=== PATIENT | male | born 1970 | race Caucasian/White ===

== ENCOUNTER 2022-10-15 14:14 | Inpatient (IN) | payer OTHER ==
[~2022-10-15] VITALS: Ht 177.8 cm; Wt 89.8 kg
--- NOTE | 2022-10-15 14:16 | NUR ---
pt taken to room 01 by hui
[2022-10-15] MEDS ORDERED: cefTRIAXone 1,000 MG in DEXT 5% MINI-BAG PLUS 50 ML IV ONE (14:20)
[2022-10-15 14:25] VITALS: BP 120/72
[2022-10-15] MEDS ORDERED: cefTRIAXone 1,000 MG VIAL ONE (14:49)
[2022-10-15 14:59] LABS: BASOPHILS # (AUTO) 0.1 K/uL (0.00-0.22); BASOPHILS % (AUTO) 0.9 % (0.0-2.0); EOSINOPHILS # (AUTO) 0.2 K/uL (0-0.4); EOSINOPHILS % (AUTO) 1.6 % (0.0-4.0); HEMATOCRIT 21.9 % (36-52); LYMPHOCYTES # (AUTO) 0.8 K/uL (2.0-11.5); LYMPHOCYTES % (AUTO) 5.8 % (20.5-51.1); MEAN CORPUSCULAR HEMOGLOBIN 30 pg (27-31); MEAN CORPUSCULAR HGB CONC 32 g/dL (33-37); MEAN CORPUSCULAR VOLUME 92.3 fL (80-94); MONOCYTES # (AUTO) 0.9 K/uL (0.8-1.0); MONOCYTES % (AUTO) 6.5 % (1.7-9.3); NEUTROPHILS # (AUTO) 11.4 K/uL (1.8-7.7); NEUTROPHILS % (AUTO) 85.2 % (42.2-75.2); PLATELET COUNT (AUTO) 348 K/uL (140-450); RED BLOOD CELL COUNT(AUTO) 2.37 MIL/uL (4.20-6.10); RED CELL DISTRIBUTION WIDTH 14.5 % (11.6-13.7); WHITE BLOOD COUNT (AUTO) 13.4 K/uL (4.8-10.8)
[2022-10-15 15:25] LABS: ALBUMIN 1.7 g/dL (3.4-5.0); CARBON DIOXIDE 11.1 mmol/L (21-32); POTASSIUM 5.1 mmol/L (3.5-5.1); TOTAL BILIRUBIN 0.1 mg/dL (0.0-1.0)
--- NOTE | 2022-10-15 15:26 | NUR ---
Covid, flu, urine dropped off at lab.
[2022-10-15 15:33] LABS: CREATININE 12.3 mg/dL (0.6-1.3)
[2022-10-15 15:35] LABS: BILIRUBIN,URINE NEGATIVE (NEGATIVE); BLOOD, URINE 1+ (NEGATIVE); COLOR,URINE YELLOW (YELLOW); LEUKOCYTE ESTERASE ,URINE NEGATIVE (NEGATIVE); NITRITE, URINE NEGATIVE (NEGATIVE); UGLUCOSE 1+ (NEGATIVE)
[2022-10-15] MEDS ORDERED: NACL 0.9% 500 ML IV ONE (15:40)
[2022-10-15 15:44] LABS: APPEARANCE,URINE CLEAR (CLEAR)
[2022-10-15 15:55] LABS: RBC,URINE 0-5 /HPF (0-5); WBC,URINE 0-5 /HPF (0-5)
[2022-10-15 15:56] LABS: URINE AMORPHOUS URATE 3+ /HPF (None Seen)
[2022-10-15] MEDS ORDERED: ALBUTEROL 0.083% 2.5 MG/3 ML NEBU INH PRN (17:30)
[2022-10-15] MEDS ORDERED: ONDANSETRON 4 MG/2 ML VIAL IVP PRN (17:35)
[2022-10-15] MEDS ORDERED: MORPHINE SULFATE 2 MG/ML SYR IVP PRN (17:35)
[2022-10-15] MEDS ORDERED: ZOLPIDEM 10 MG TAB PO PRN (17:35)
[2022-10-15] MEDS ORDERED: LORazepam 2 MG/ML VIAL IVP PRN (17:35)
[2022-10-15] MEDS ORDERED: MAG SULF 2000 MG/WATER PREMIX 50 ML IV PRN (17:35)
[2022-10-15] MEDS ORDERED: DOCUSATE SODIUM 100 MG GELCAP PO PRN (17:35)
--- NOTE | 2022-10-15 20:03 | NUR ---
PT IS RESTING. LOOK TIRED. LIZZY BATRES 2 L IS ON SATINNG AT 98
[2022-10-15] MEDS ORDERED: APR10 PO (20:47)
[2022-10-15] MEDS ORDERED: GLUC1VIA SUBQ (20:47)
[2022-10-15] MEDS ORDERED: VANC125C5 PO (20:47)
[2022-10-15] MEDS ORDERED: ESCI10TA PO (20:47)
[2022-10-15] MEDS ORDERED: ACET-2619 PO (20:47)
[2022-10-15] MEDS ORDERED: SLIDE SUBQ (20:47)
[2022-10-15] MEDS ORDERED: CARV25TA PO (20:47)
[2022-10-15] MEDS ORDERED: ASPI-1749 PO (20:47)
[2022-10-15] MEDS ORDERED: DIPH25TA41 PO (20:47)
[2022-10-15] MEDS ORDERED: HEPA500056 SUBQ (20:47)
[2022-10-15] MEDS ORDERED: [UNRECOGNIZED DRUG - CODE] IV (20:47)
[2022-10-15] MEDS ORDERED: ONDA-188 PO (20:47)
[2022-10-15] MEDS ORDERED: NALO4SPR IVP (20:47)
[2022-10-15] MEDS ORDERED: TAMS0.4C96 PO (20:47)
[2022-10-15] MEDS ORDERED: DIPH50TA5 PO (20:47)
[2022-10-15] MEDS ORDERED: MORP1SYR3 IV (20:47)
[2022-10-15] MEDS ORDERED: FERR325E14 PO (20:47)
[2022-10-15] MEDS ORDERED: PANT20EC PO (20:47)
[2022-10-15] MEDS ORDERED: LAS20I IV (20:47)
[2022-10-15] MEDS ORDERED: PIPE50SO5 IV (20:47)
--- NOTE | 2022-10-15 21:04 | NUR ---
Patient will be admitted to care of DR. CABALLERO . Admited to TELEMETRY . Will go to room 107B. Belongings list completed. Report to GRIFFIN.
--- NOTE | 2022-10-15 21:25 | NUR ---
RECEIVED PT. FROM ER AND REPORT GIVEN BY JENNA PEPPER. PT. SLEEPY AND SNORING UPON TRANSFERRED FROM [facility] TO TELEMETRY BED. EYES PERRLA. BILATERAL LUNGS DIMINISHED SOUNDS. ON NASAL CANULA 2L WITH O2 SAT 99%. ABDOMEN MINIMAL BOWEL SOUNDS, SOFT AND NON TENDER. IV TO RIGHT HAND 18G CAPPED AND FLUSHED. PT. WITH GENERALIZED WEAKNESS. INCONTINENT. SKIN INTACT. DIET IS 2 GM NA. BEDLOCK AND PLACED IN THE LOWEST HEIGHT FOR SAFETY. FREQUENT BEDSIDE CHECK. PROVIDED QUIET ENVIRONMENT. NO S/S OF RESPIRATORY DISTRESS AND NO S/S OF PAIN.
[2022-10-15 21:30] VITALS: BP 126/68
[2022-10-15] MEDS: PIPERACILLIN/TAZOBACTAM 2.25 GM in DEXTROSE 5% 50 ML IV SCH (22:00)
[2022-10-15] MEDS ORDERED: PIPERACILLIN/TAZOBACTAM 2.25 GM VIAL IV ONE (23:17)
[2022-10-16] VITALS: BP 114/62
[2022-10-16 04:00] VITALS: BP 123/61
[2022-10-16] MEDS ORDERED: PIPERACILLIN/TAZOBACTAM 2.25 GM VIAL IV ONE (05:42)
[2022-10-16] MEDS: PIPERACILLIN/TAZOBACTAM 2.25 GM in DEXTROSE 5% 50 ML IV SCH ×3 (05:45→20:17)
--- NOTE | 2022-10-16 06:50 | NUR ---
DR. MELCHOR CALLED AND ASKED PT. CURRENT CONDITION. PROVIDED DR. MELCHOR WITH PT. NEURO STATUS AT THIS TIME. HE ORDERED TO CONSULT DR. NAVARRETE FOR HD CATHETER PLACEMENT THEN HEMODIALYSIS AFTER PLACEMENT. WILL ENDORSE TO THE NEXT SHIFT.
[2022-10-16 07:23] LABS: BASOPHILS # (AUTO) 0.1 K/uL (0.00-0.22); BASOPHILS % (AUTO) 0.5 % (0.0-2.0); EOSINOPHILS # (AUTO) 0.1 K/uL (0-0.4); EOSINOPHILS % (AUTO) 1.2 % (0.0-4.0); HEMATOCRIT 25.3 % (36-52); HEMOGLOBIN 8.1 g/dL (12.0-18.0); LYMPHOCYTES # (AUTO) 0.8 K/uL (2.0-11.5); MEAN CORPUSCULAR HEMOGLOBIN 30 pg (27-31); MEAN CORPUSCULAR HGB CONC 32 g/dL (33-37); MEAN CORPUSCULAR VOLUME 93.1 fL (80-94); MONOCYTES # (AUTO) 0.5 K/uL (0.8-1.0); MONOCYTES % (AUTO) 4.2 % (1.7-9.3); NEUTROPHILS # (AUTO) 11.1 K/uL (1.8-7.7); NEUTROPHILS % (AUTO) 88.1 % (42.2-75.2); PLATELET COUNT (AUTO) 398 K/uL (140-450); RED BLOOD CELL COUNT(AUTO) 2.72 MIL/uL (4.20-6.10); RED CELL DISTRIBUTION WIDTH 14.2 % (11.6-13.7); WHITE BLOOD COUNT (AUTO) 12.6 K/uL (4.8-10.8)
--- NOTE | 2022-10-16 07:30 | NUR ---
RECEIVED BEDSIDE REPORT FROM [facility] NURSE FOR CONTINUITY OF CARE. IVF INFUSING WELL. CALL LIGHT KEPT WIHTIN REACH. WILL CONTINUE TO MONITOR.
[2022-10-16 07:37] LABS: ANION GAP 28.8 (8-16); POTASSIUM 5.2 mmol/L (3.5-5.1)
[2022-10-16 08:00] VITALS: BP 130/68
[2022-10-16 08:06] LABS: CREATININE 12.8 mg/dL (0.6-1.3)
[2022-10-16 08:07] LABS: CARBON DIOXIDE 9.4 mmol/L (21-32)
--- NOTE | 2022-10-16 08:16 | NUR ---
RECEIVED CALLED FROM LAB SPOKE TO [facility], CRITICAL BUN 113, CREATINE 12.8, CARBON DIOXIDE 9.4. DR. CABALLERO AT BEDSIDE, NOTIFIED WITH NO NEW ORDER. PATIENT IS FOR HD CATHETER PLACEMENT.
[2022-10-16] MEDS: ASPIRIN 81 MG TAB.CHEW PO SCH (09:00)
--- NOTE | 2022-10-16 09:21 | NUR ---
PATIENT HAS BEEN SCREENED AND CATEGORIZED MODERATE NUTRITION RISK. PATIENT WILL BE SEEN WITHIN 3-5 DAYS OF ADMISSION. REVIEWED BY KEON SOOD RD
--- NOTE | 2022-10-16 09:40 | NUR ---
HD DIALYSIS CATHETER PLACEMENT DONE BY DR. NAVARRETE AT THE BEDSIDE. PT TOLERATED WELL. Addendum: 10/16/22 at 1935 by ANNA SINCLAIR LVN RT IJ HEMODIALYSIS CATHETER.
[2022-10-16] MEDS ORDERED: LIDOCAINE 1% 500 MG/ 50 ML VIAL INJ SCH (09:45)
--- NOTE | 2022-10-16 10:10 | NUR ---
HD DIALYSIS STARTED.
[2022-10-16 12:00] VITALS: BP 123/62
--- NOTE | 2022-10-16 14:35 | NUR ---
HEMODIALYSIS DONE. PER DIALYSIS NURSE WITH 2 L DIALYZE.
[2022-10-16 16:00] VITALS: BP 126/75
--- NOTE | 2022-10-16 19:25 | NUR ---
BEDSIDE REPORT GIVEN FOR CONTINUITY OF CARE. REMAINS STABLE.
--- NOTE | 2022-10-16 19:30 | NUR ---
RECEIVED PT IN BED, ASLEEP, EASILY AROUSABLE BY VERBAL STIMULI. NO S/SX OF PAIN NOR DISCOMFORT. NO ACUTE RESPIRATORY DISTRESS. SKIN WARM AND DRY TO TOUCH. RIGHT IJ DIALYSIS ACCESS IN PLACE WITH CDI DRESSING. SAFETY PRECAUTION IN PLACE, CALL LIGHT IN REACH.
[2022-10-16 20:00] VITALS: BP 150/79
[2022-10-16] MEDS: ACETAMINOPHEN 325 MG TAB PO PRN (21:28)
--- NOTE | 2022-10-16 22:05 | NUR ---
INCONTINENT OF URINE, PERINEAL CARE RENDERED. PULLED UP AND REPOSITIONED PT. HEAD OF THE BED ELEVATED. CALL LIGHT IN REACH.
[2022-10-17] VITALS: BP 116/57
--- NOTE | 2022-10-17 00:13 | NUR ---
PATIENT IS ASLEEP. BREATHING EVEN AND UNLABORED. CALL LIGHT IN REACH. CALL LIGHT WITHIN REACH.
[2022-10-17 04:00] VITALS: BP 148/73
--- NOTE | 2022-10-17 04:15 | NUR ---
PATIENT HAD A BOWEL MOVEMENT, AM CARE RENDERED. MADE COMFORTABLE IN BED.
[2022-10-17] MEDS: PIPERACILLIN/TAZOBACTAM 2.25 GM in DEXTROSE 5% 50 ML IV SCH ×2 (04:49→12:02)
--- NOTE | 2022-10-17 06:22 | NUR ---
PATIENT IS ASLEEP. NO DISTRESS NOTED. ALL NEEDS ATTENDED TO. SAFETY PRECAUTIONS MAINTAINED DURING THE SHIFT, CALL LIGHT REMAINS WITHIN REACH.
[2022-10-17 07:21] LABS: CARBON DIOXIDE 17.8 mmol/L (21-32); POTASSIUM 3.8 mmol/L (3.5-5.1)
--- NOTE | 2022-10-17 07:32 | NUR ---
GOT REPORT FROM THE NIGHT NURSE, PT SLEEPING, NO SOB [id number]
[2022-10-17 07:50] LABS: HEMATOCRIT 21.3 % (36-52); HEMOGLOBIN 7.1 g/dL (12.0-18.0); MEAN CORPUSCULAR HEMOGLOBIN 31 pg (27-31); MEAN CORPUSCULAR HGB CONC 33 g/dL (33-37); MEAN CORPUSCULAR VOLUME 91.3 fL (80-94); PLATELET COUNT (AUTO) 361 K/uL (140-450); RED BLOOD CELL COUNT(AUTO) 2.33 MIL/uL (4.20-6.10); RED CELL DISTRIBUTION WIDTH 13.9 % (11.6-13.7); WHITE BLOOD COUNT (AUTO) 9.1 K/uL (4.8-10.8)
[2022-10-17 08:00] VITALS: BP 150/81
[2022-10-17 08:01] LABS: CREATININE 9.3 mg/dL (0.6-1.3)
[2022-10-17] MEDS: ASPIRIN 81 MG TAB.CHEW PO SCH (08:31)
[2022-10-17 12:00] VITALS: BP 158/81
--- NOTE | 2022-10-17 14:09 | NUR ---
DC PLANNING: PER DR MCELROY AGRICULTURAL SERVICES DIRECTOR ORDER TO ARRANGED OUT PT DIALYSIS WITH [facility] FAXED THE PAPERWORK TO [facility] [phone] AND PER GRAPHIC PRE PRESS TRADES WORKER CHAIR TIME WILL BE M-W- F AT 1PM. CM TO FOLLOW Addendum: 10/22/22 at 1352 by Shantelle Kwan CM ORDER FOR DC PLANNING TO [facility] RECEIVED. CONTACTED PATIENT'S BROTHER BRITTANY RANDHAWA AT [phone]. NO ANSWER. LEFT MESSAGE REQUESTING A CALL BACK. WILL FOLLOW UP. ORDER SENT TO [facility]. REFERRAL SENT TO [facility]. RECEIVED A CALL BACK FROM [facility] WAS WITH [facility] WHEN PATIENT WAS WITH THEM. Addendum: 10/25/22 at 1507 by Shania Urena RN DC PLANNING: [facility] ACCEPTED PATIENT CAN GO TO ROOM 206B # TO GIVE REPORT [phone] . CM SPOKE WITH PATIENT AND HE AGREED TO GO TO [facility]. ARRANGED TRANSPORT WITH [facility] UPTIME 3:30 PM. NOTIFIED [facility] TRANSPORTATION PLANNER. CM TO FOLLOW
[2022-10-17 14:15] LABS: EOSINOPHILS % (MANUAL) 1 % (0-4); LYMPHOCYTES % (MANUAL) 7 % (20-46); MONOCYTES % (MANUAL) 6 % (5-12)
--- NOTE | 2022-10-17 14:16 | NUR ---
DC PLANNING PER NOTES PT ONLY ALERT TO PERSON, THEREFORE SW OUTREACHED TO [facility]CI TO GATHER COLLATERAL INFORMATION. SPOKE WITH SILVESTRE WHO REPORTS PT IS RECENT ADMIT TO , ADMIT DATE 10/14/22. SILVESTRE REPORTS PT WAS ADMITTED TO UNDER HOSPICE CARE WITH [facility], HOWEVER REVOKED HOSPICE ON 10/15 FAMILY DECIDED TO PROCEED WITH DIALYSIS. SILVESTRE REPORTS PT AND FAMILY WANTED TO RETURN HOME BEFORE BEING ADMITTED TO [facility]. SW OUTREACHED TO PTS EMERGENCY CONTACT, LOAN RANDHAWA, FQ CONFIRM COLLATERAL INFORMATION GATHERED. SPOKE WITH LOAN WHO CONFIRMS DC PLAN IS FOR PT TO RETURN HOME, ONCE STABLE. LOAN REPORTS PT WILL RETURN TO [address] [place] [address] AND WILL BE RESIDING WITH HIM. Addendum: 10/17/22 at 1418 by Luis Manuel JOHNSON Amended: Links added.
--- NOTE | 2022-10-17 16:09 | NUR ---
PT IS GETTING READY TO BE DIALYZED, CONSENT [facility] FOR DIALYSIS AND FOR HEMODIALYSIS CATH FOR TOMORROW THE [facility] IS UP FOR NPO AFTER MIDNIGHT. [id number]
[2022-10-17 16:23] VITALS: BP 165/83
--- NOTE | 2022-10-17 16:30 | NUR ---
10/17/22 RD INITIAL ASSESSMENT COMPLETED PLEASE REFER TO NUTRITION ASSESSMENT UNDER CARE ACTIVITY FOR ESTIMATED NUTRITIONAL NEEDS. 1. RECOMMEND RENAL DIET 2. RECOMMEND NEPRO 1XDAY, FOR NUTRITION SUPPORT. 3. CLOAK ROOM ATTENDANT EDUCATED PT ON RENAL NUTRITION THERAPY, AND PROVIDED HANDOUTS. 4. MONITOR PO INTAKE, GI, AND LAB VALUES. 5. RD TO FOLLOW-UP 7 DAYS, LOW RISK REVIEWED BY KEON SOOD RD
--- NOTE | 2022-10-17 18:37 | NUR ---
PT IN DIALYSIS . [email or web address]
--- NOTE | 2022-10-17 19:10 | NUR ---
RECEIVED PT IN BED WITH EYES CLOSED, HD DONE-2.5 L OUT PER DELIVERY MOTORCYCLE DRIVER. NO S/SX OF PAIN NOR DISCOMFORT. NO ACUTE RESPIRATORY DISTRESS NOTED. SKIN WARM AND DRY TO TOUCH. BED IN THE LOWEST AND LOCKED POSITION FOR SAFETY, CALL LIGHT IN REACH.
[2022-10-17 20:00] VITALS: BP 183/92
[2022-10-17] MEDS: CLONIDINE HYDROCHLORIDE 0.1 MG TAB PO PRN (20:23)
--- NOTE | 2022-10-17 22:35 | NUR ---
SPOKE WITH DR. ALVARENGA, BENDER HELPER FOR DR. RODGERS INFORMED OF CURRENT BP-179/92 HR-110, GAVE CLONIDINE ORDERED. NEW ORDER GIVEN AND WILL BE CARRIED OUT.
[2022-10-17] MEDS ORDERED: NIFEdipine 60 MG TABER PO SCH (22:36)
[2022-10-18] VITALS: BP 168/96
[2022-10-18] MEDS: ACETAMINOPHEN 325 MG TAB PO PRN (00:27)
--- NOTE | 2022-10-18 00:28 | NUR ---
INCONTINENT OF URINE, PERINEAL CARE RENDERED. NPO AFTER MIDNIGHT, PT IS AWARE.
[2022-10-18] MEDS: CLONIDINE HYDROCHLORIDE 0.1 MG TAB PO PRN (03:45)
[2022-10-18 04:00] VITALS: BP 162/81
--- NOTE | 2022-10-18 06:35 | NUR ---
PATIENT IS ASLEEP. CURRENTLY NPO FOR PROCEDURE. NO S/SX OF PAIN NOR DISCOMFORT. ALL NEEDS ATTENDED TO. SAFETY PRECAUTIONS IN PLACE, CALL LIGHT IN REACH.
[2022-10-18 06:51] LABS: ANION GAP 12.3 (8-16); CARBON DIOXIDE 28.7 mmol/L (21-32)
[2022-10-18 07:23] LABS: BASOPHILS % (AUTO) 0.4 % (0.0-2.0); EOSINOPHILS # (AUTO) 0.1 K/uL (0-0.4); EOSINOPHILS % (AUTO) 1.4 % (0.0-4.0); HEMATOCRIT 21.6 % (36-52); HEMOGLOBIN 7.2 g/dL (12.0-18.0); LYMPHOCYTES # (AUTO) 0.6 K/uL (2.0-11.5); LYMPHOCYTES % (AUTO) 7.1 % (20.5-51.1); MEAN CORPUSCULAR HEMOGLOBIN 30 pg (27-31); MEAN CORPUSCULAR HGB CONC 33 g/dL (33-37); MEAN CORPUSCULAR VOLUME 90.2 fL (80-94); MONOCYTES # (AUTO) 0.8 K/uL (0.8-1.0); MONOCYTES % (AUTO) 8.8 % (1.7-9.3); NEUTROPHILS # (AUTO) 7.2 K/uL (1.8-7.7); NEUTROPHILS % (AUTO) 82.3 % (42.2-75.2); PLATELET COUNT (AUTO) 364 K/uL (140-450); RED BLOOD CELL COUNT(AUTO) 2.39 MIL/uL (4.20-6.10); RED CELL DISTRIBUTION WIDTH 14.1 % (11.6-13.7); WHITE BLOOD COUNT (AUTO) 8.8 K/uL (4.8-10.8)
[2022-10-18 07:30] LABS: PROTHROMBIN TIME 12.1 secs (10.8-13.4)
--- NOTE | 2022-10-18 07:45 | NUR ---
GOT REPORT FROM THE NIGHT NURSE, PT SLEEPING NO SOB, .[id number]
[2022-10-18 08:00] VITALS: BP 108/68
[2022-10-18] MEDS: ASPIRIN 81 MG TAB.CHEW PO SCH (08:53)
[2022-10-18] MEDS: NIFEdipine 60 MG TABER PO SCH (08:53)
[2022-10-18] MEDS: LOSARTAN 50 MG TAB PO SCH (08:56)
[2022-10-18] MEDS: POTASSIUM CHLORIDE 10 MEQ TABER PO PRN (08:57)
[2022-10-18 12:00] VITALS: BP 130/77
[2022-10-18 15:06] LABS: HEPATITIS A ANTIBODY IGM Negative (Negative); HEPATITIS B CORE AB TOTAL Negative (Negative); HEPATITIS B SURFACE ANTIBODY Non Reactive (.); HEPATITIS B SURFACE ANTIGEN Negative (Negative)
[2022-10-18 16:00] VITALS: BP 127/71
--- NOTE | 2022-10-18 19:10 | NUR ---
RECEIVED PATIENT LYING ON THE BED, HOB ELEVATED, NO SIGNS OF DISTRESS NOTED, DENIES PAIN. IV ACCESS SITE ON RIGHT ARM G20, PATENT, INTACT. CALL LIGHT WITHIN REACH.
[2022-10-18] MEDS ORDERED: PROPOFOL 200 MG/20 ML VIAL IV ONE (19:11)
[2022-10-18 19:20] LABS: ANION GAP 15.5 (8-16); CARBON DIOXIDE 27.1 mmol/L (21-32); POTASSIUM 3.6 mmol/L (3.5-5.1)
[2022-10-18 19:26] LABS: CREATININE 6.6 mg/dL (0.6-1.3)
[2022-10-18 20:00] VITALS: BP 121/63
--- NOTE | 2022-10-18 21:30 | NUR ---
PATIENT INFORMED OF NPO STATUS AFTER MIDNIGHT, FOR TUNNELED DIALYSIS CATHETER PLACEMENT ON 10/19. PATIENT VERBALIZED UNDERSTANDING.
[2022-10-19] VITALS: BP 126/71
--- NOTE | 2022-10-19 01:19 | NUR ---
PATIENT IS ASLEEP, NO SIGNS OF DISTRESS NOTED, NO SIGNS OF PAIN NOTED. SAFETY MEASURES MAINTAINED.
[2022-10-19 04:00] VITALS: BP 143/71
--- NOTE | 2022-10-19 04:15 | NUR ---
MORNING CARE DONE. PATIENT DENIES PAIN, NO SIGNS OF DISTRESS NOTED. CALL LIGHT WITHIN REACH.
[2022-10-19 06:39] LABS: BASOPHILS # (AUTO) 0.1 K/uL (0.00-0.22); BASOPHILS % (AUTO) 0.7 % (0.0-2.0); EOSINOPHILS # (AUTO) 0.2 K/uL (0-0.4); EOSINOPHILS % (AUTO) 2.2 % (0.0-4.0); HEMATOCRIT 23.7 % (36-52); HEMOGLOBIN 7.9 g/dL (12.0-18.0); LYMPHOCYTES # (AUTO) 0.9 K/uL (2.0-11.5); LYMPHOCYTES % (AUTO) 10.1 % (20.5-51.1); MEAN CORPUSCULAR HEMOGLOBIN 30 pg (27-31); MEAN CORPUSCULAR HGB CONC 33 g/dL (33-37); MEAN CORPUSCULAR VOLUME 90.2 fL (80-94); MONOCYTES # (AUTO) 0.8 K/uL (0.8-1.0); MONOCYTES % (AUTO) 9.9 % (1.7-9.3); NEUTROPHILS # (AUTO) 6.6 K/uL (1.8-7.7); NEUTROPHILS % (AUTO) 77.1 % (42.2-75.2); PLATELET COUNT (AUTO) 368 K/uL (140-450); RED BLOOD CELL COUNT(AUTO) 2.62 MIL/uL (4.20-6.10); WHITE BLOOD COUNT (AUTO) 8.6 K/uL (4.8-10.8)
[2022-10-19 06:47] LABS: ANION GAP 14.7 (8-16); CARBON DIOXIDE 26.7 mmol/L (21-32); POTASSIUM 3.4 mmol/L (3.5-5.1)
--- NOTE | 2022-10-19 07:03 | NUR ---
ENDORSED PATIENT TO DAY NURSE FOR CONTINUITY OF CARE. PATIENT IS STABLE. NEEDS MET THROUGHOUT THE SHIFT.
--- NOTE | 2022-10-19 07:10 | NUR ---
GOT REPORT FROM THE NIGHT NURSE, PT SLEEPING NO SOB.[id number]
--- NOTE | 2022-10-19 07:10 | NUR ---
GOT REPORT FROM THE NIGHT NURSE, PT SLEEPING NO SOB. THE NC OFF REPLACED AND GREETED PT.[id number]
[2022-10-19 07:29] LABS: CREATININE 6.8 mg/dL (0.6-1.3)
[2022-10-19 08:00] VITALS: BP 137/76
[2022-10-19] MEDS: LOSARTAN 50 MG TAB PO SCH (08:32)
[2022-10-19] MEDS: NIFEdipine 60 MG TABER PO SCH (08:32)
[2022-10-19] MEDS: POTASSIUM CHLORIDE 10 MEQ TABER PO PRN (08:34)
--- NOTE | 2022-10-19 11:14 | NUR ---
STARTED BLOOD TRANSFUSION, PT SO FAR NO REACTION.[id number]
[2022-10-19 12:00] VITALS: BP 143/87
[2022-10-19 16:00] VITALS: BP 133/78
[2022-10-19] MEDS ORDERED: BUPIVACAINE MPF 0.25% 10 ML VIAL INJ ONE (19:09)
[2022-10-19] MEDS ORDERED: LIDOCAINE MPF 1% 10 ML ONE (19:10)
[2022-10-19] MEDS ORDERED: PROPOFOL 200 MG/20 ML VIAL IV ONE ×2 (19:51)
[2022-10-19] MEDS ORDERED: ONDANSETRON 4 MG/2 ML VIAL IV PRN (20:10)
[2022-10-19] MEDS ORDERED: HYDROcodone/APAP 5/325 MG 1 TAB TAB PO PRN (20:10)
[2022-10-19] MEDS ORDERED: LABETALOL 20 MG/4 ML VIAL IVP PRN (20:10)
[2022-10-19] MEDS ORDERED: MORPHINE SULFATE 4 MG/ML SYR IV PRN (20:10)
[2022-10-19] MEDS ORDERED: hydrALAZINE 20 MG/ML VIAL IVP PRN (20:11)
[2022-10-19 20:40] VITALS: BP 138/88
--- NOTE | 2022-10-19 20:40 | NUR ---
PATIENT CAME BACK FROM OR FOR PLACEMENT OF TUNNELED HEMODIALYSIS PERMA CATHETER. PATIENT AWAKE, ALERT AND ORIENTED. VITALS TAKEN T 98.7, P 105, BP 138/88, RESP 18 AND SAT @90% ON ROOM AIR. CALL LIGHT WITHIN REACH.
[2022-10-20] VITALS: BP 150/78
--- NOTE | 2022-10-20 00:28 | NUR ---
PATIENT IS ASLEEP, NO SIGNS OF DISTRESS NOTED, NO SIGNS OF PAIN NOTED. NO BLEEDING NOTED ON RIGHT LATERAL NECK( INSERTION OF DIALYSIS CATHETER). ALL SAFETY MEASURES IN PLACE. WILL CONTINUE TO MONITOR THE PATIENT.
--- NOTE | 2022-10-20 03:50 | NUR ---
MORNING CARE DONE. PATIENT DENIES PAIN, NO SOB NOTED. ALL SAFETY MEASURES IN PLACE.
[2022-10-20 04:00] VITALS: BP 155/83
[2022-10-20 06:29] LABS: BASOPHILS % (AUTO) 0.4 % (0.0-2.0); EOSINOPHILS # (AUTO) 0.1 K/uL (0-0.4); EOSINOPHILS % (AUTO) 0.9 % (0.0-4.0); HEMOGLOBIN 9.1 g/dL (12.0-18.0); LYMPHOCYTES # (AUTO) 0.8 K/uL (2.0-11.5); LYMPHOCYTES % (AUTO) 6.3 % (20.5-51.1); MEAN CORPUSCULAR HEMOGLOBIN 30 pg (27-31); MEAN CORPUSCULAR HGB CONC 34 g/dL (33-37); MEAN CORPUSCULAR VOLUME 88.9 fL (80-94); MONOCYTES # (AUTO) 1.1 K/uL (0.8-1.0); MONOCYTES % (AUTO) 8.7 % (1.7-9.3); NEUTROPHILS # (AUTO) 10.3 K/uL (1.8-7.7); PLATELET COUNT (AUTO) 338 K/uL (140-450); RED BLOOD CELL COUNT(AUTO) 3.04 MIL/uL (4.20-6.10); RED CELL DISTRIBUTION WIDTH 13.9 % (11.6-13.7); WHITE BLOOD COUNT (AUTO) 12.2 K/uL (4.8-10.8)
[2022-10-20 06:38] LABS: ANION GAP 13.8 (8-16); CARBON DIOXIDE 25.3 mmol/L (21-32); POTASSIUM 4.1 mmol/L (3.5-5.1)
[2022-10-20 07:22] LABS: CREATININE 7.5 mg/dL (0.6-1.3); NEUTROPHILS % (AUTO) 83.7 % (42.2-75.2)
--- NOTE | 2022-10-20 07:25 | NUR ---
ENDORSE PATIENT TO DAY NURSE FOR CONTINUITY OF CARE. NEEDS MET THROUGHOUT THE SHIFT. PATIENT IN STABLE CONDITION.
--- NOTE | 2022-10-20 07:25 | NUR ---
RECEIVED PT REPORT FROM MARKETING SUPPORT COORDINATOR NURSE FOR CONTINUITY OF CARE. PT IS AOX4, ABLE TO MAKE NEEDS KNOWN. ON ROOM AIR AND NO DISTRESS NOTED. SKIN IS WARM, DRY, AND INTACT. IV SITE INTACT AND PATENT. SALINE LOCKED. HAS RIJ TUNNELED CATHETER IN PLACE. WILL HAVE DIALYSIS TODAY. DENIES PAIN AT THE MOMENT. PLAN OF CARE DISCUSSED. SAFETY PRECAUTIONS IN PLACE. CALL LIGHT WITHIN REACH. WILL CONTINUE TO MONITOR.
[2022-10-20 08:00] VITALS: BP 153/88
[2022-10-20] MEDS: NIFEdipine 60 MG TABER PO SCH (08:11)
[2022-10-20] MEDS: LOSARTAN 50 MG TAB PO SCH (08:12)
--- NOTE | 2022-10-20 09:30 | NUR ---
ALL SCHEDULED MEDS GIVEN. PT IS STABLE. NO DISTRESS NOTED. WILL CONTINUE TO MONITOR.
[2022-10-20 12:00] VITALS: BP 133/82
--- NOTE | 2022-10-20 12:20 | NUR ---
DIALYSIS NURSE AT BEDSIDE PREPARING FOR HD TREATMENT
[2022-10-20] MEDS ORDERED: NIFE60TA39 PO (14:21)
[2022-10-20] MEDS ORDERED: LOSA50TA1 PO (14:21)
--- NOTE | 2022-10-20 15:30 | NUR ---
HD TREATMENT COMPLETED 2.5 L OUT
[2022-10-20 16:00] VITALS: BP 150/89
--- NOTE | 2022-10-20 17:15 | NUR ---
INFORMED MD THAT PATIENT IS NOT READY TO BE DISCHARGE. HE COMPLAINED OF DIZZINESS AND WEAKNESS WHEN HE STANDS UP TO THE SINK. MD SAID TO DC TOMORROW INSTEAD
--- NOTE | 2022-10-20 19:30 | NUR ---
RECEIVED PATIENT FROM NURSE FOR CONYINUITY OF CARE. PT IS STABLE
[2022-10-20 20:00] VITALS: BP 146/84
[2022-10-21] VITALS (7 sets, daily range): BP systolic 139–150; BP diastolic 78–89
--- NOTE | 2022-10-21 00:01 | NUR ---
PATIENT ASLEEP, ALL SAFETY MEASURES IN PLACE, NO DISTRESS NOTED
--- NOTE | 2022-10-21 03:00 | NUR ---
PATIENT IS AWAKE AT THIS TIME, NO DIZZINESS OR PAIN NOTED
[2022-10-21] MEDS: NIFEdipine 60 MG TABER PO SCH (08:24)
[2022-10-21] MEDS: LOSARTAN 50 MG TAB PO SCH (08:24)
--- NOTE | 2022-10-21 09:15 | NUR ---
PT COMPLAINED OF DIZZINESS WHEN STANDING UP AND UNABLE TO AMBULATE TO THE BATHROOM. MADE AWARE TO MD AND RECEIVED ORDERS TO CANCEL DISCHARGE AND PLACE ORDERS FOR PHYSICAL THERAPY SERVICE.
--- NOTE | 2022-10-21 14:20 | NUR ---
DR GRIFFITH AT BEDSIDE.
--- NOTE | 2022-10-21 18:00 | NUR ---
ASSISTED PT TO THE BATHROOM. HAD 1 BM
--- NOTE | 2022-10-21 19:29 | NUR ---
ENDORSED TO OXYACETYLENE CUTTER NURSE FOR CONTINUITY OF CARE. PT IS STABLE.
--- NOTE | 2022-10-21 19:35 | NUR ---
RECEIVED PT FROM AM NURSE FOT CONTINUITY OF CARE .PT IS STABLE
[2022-10-22] MEDS: CLONIDINE HYDROCHLORIDE 0.1 MG TAB PO PRN (02:37)
[2022-10-22 04:00] VITALS: BP 153/87
[2022-10-22 06:14] LABS: BASOPHILS # (AUTO) 0.1 K/uL (0.00-0.22); BASOPHILS % (AUTO) 0.7 % (0.0-2.0); EOSINOPHILS # (AUTO) 0.1 K/uL (0-0.4); EOSINOPHILS % (AUTO) 1.4 % (0.0-4.0); HEMATOCRIT 27.2 % (36-52); HEMOGLOBIN 9.2 g/dL (12.0-18.0); LYMPHOCYTES # (AUTO) 0.8 K/uL (2.0-11.5); LYMPHOCYTES % (AUTO) 8.1 % (20.5-51.1); MEAN CORPUSCULAR HEMOGLOBIN 30 pg (27-31); MEAN CORPUSCULAR HGB CONC 34 g/dL (33-37); MEAN CORPUSCULAR VOLUME 88.7 fL (80-94); MONOCYTES # (AUTO) 0.7 K/uL (0.8-1.0); MONOCYTES % (AUTO) 7.7 % (1.7-9.3); NEUTROPHILS % (AUTO) 82.1 % (42.2-75.2); PLATELET COUNT (AUTO) 278 K/uL (140-450); RED BLOOD CELL COUNT(AUTO) 3.07 MIL/uL (4.20-6.10); RED CELL DISTRIBUTION WIDTH 13.6 % (11.6-13.7); WHITE BLOOD COUNT (AUTO) 9.7 K/uL (4.8-10.8)
[2022-10-22 06:34] LABS: ANION GAP 12.9 (8-16); POTASSIUM 3.9 mmol/L (3.5-5.1)
[2022-10-22 08:00] VITALS: BP 143/81
[2022-10-22] MEDS: NIFEdipine 60 MG TABER PO SCH (09:05)
[2022-10-22] MEDS: LOSARTAN 50 MG TAB PO SCH (09:06)
--- NOTE | 2022-10-22 09:08 | NUR ---
ADMINISTERED ALL DUE MEDS. PT TOLERATING WELL.
[2022-10-22 10:27] LABS: CREATININE 6.3 mg/dL (0.6-1.3)
--- NOTE | 2022-10-22 12:45 | NUR ---
PT STARTING DIALYSIS.
--- NOTE | 2022-10-22 14:47 | NUR ---
MAKING ROUNDS PT RECEIVING DIALYSIS.
[2022-10-22 16:00] VITALS: BP 151/87
--- NOTE | 2022-10-22 16:12 | NUR ---
DIALYSIS FINISHED. 2L OUT.
--- NOTE | 2022-10-22 17:30 | NUR ---
MAKING ROUNDS. PT IN BED TALKING ON PHONE UNDER COVERS. CALL LIGHT WITHIN REACH.
--- NOTE | 2022-10-22 19:22 | NUR ---
ENDORSED PT TO ENGRAVER MACHINE NURSE FOR CONTINUITY OF CARE. PT IN STABLE CONDITION.
--- NOTE | 2022-10-22 19:23 | NUR ---
RECEIVED REPORT FROM DAY SHIFT NURSE SHELLY FOR CONTINUITY OF CARE. PT AWAKE IN BED, USING HIS CP. RESPIRATIONS EVEN AND UNOLABORED ON 2L NC. A/A/O ABLE TO MAKE NEEDS KNOWN. SKIN INTACT, WARM AND DRY TO TOUCH. INITIAL ASSESSMENT DONE. POC DISCUSSED. CALL LIGHT WITHIN REACH. SAFETY PRECAUTIONS IN PLACE.
[2022-10-22 20:00] VITALS: BP 153/90
--- NOTE | 2022-10-22 20:00 | NUR ---
Patient's Plan of Care was discussed and reviewed with SANDRA SNELL.
--- NOTE | 2022-10-22 23:28 | NUR ---
DID ROUNDS. PT SLEEPING WITH NO DISTRESS NOTED. SAFETY PRECAUTIONS IN PLACE.
[2022-10-23 04:00] VITALS: BP 148/88
--- NOTE | 2022-10-23 04:05 | NUR ---
V/S WAS TAKEN. STABLE ON RA. NO DISTRESS NOTED.
--- NOTE | 2022-10-23 07:06 | NUR ---
ASSUMED CONTINUITY OF CARE. INITIAL ASSESSMENT DONE. EXPLAINED DIAGNOSIS, PLAN OF CARE, PAIN MANAGEMENT TEACHING, USE OF CALL LIGHT/BED/TV/BATHROOM. VERBALIZED UNDERSTANDING. FALL PRECAUTION APPLIED. CALL LIGHT WITHIN REACH.
--- NOTE | 2022-10-23 07:09 | NUR ---
GAVE BEDSIDE REPORT TO DAY SHIFT NURSE SARAVANAN FOR CONTINUITY OF CARE. ALL NEEDS MET THROUGHOUT SHIFT. PT IS STABLE.
[2022-10-23 08:00] VITALS: BP 163/95
--- NOTE | 2022-10-23 08:00 | NUR ---
Patient's Plan of Care was discussed and reviewed with BOILER WATER TESTER: SARAVANAN
[2022-10-23] MEDS: LOSARTAN 50 MG TAB PO SCH (09:13)
[2022-10-23] MEDS: NIFEdipine 60 MG TABER PO SCH (09:14)
--- NOTE | 2022-10-23 09:30 | NUR ---
PHYSICAL THERAPIST CAME FOR TREATMENT.
[2022-10-23 11:05] LABS: ANION GAP 11.3 (8-16); CARBON DIOXIDE 29.7 mmol/L (21-32); TOTAL BILIRUBIN 0.1 mg/dL (0.0-1.0)
[2022-10-23 11:07] LABS: CREATININE 4.7 mg/dL (0.6-1.3)
--- NOTE | 2022-10-23 11:45 | NUR ---
USED URINAL AND VOIDED WITH 150 ML CLEAR YELLOW URINE. NO C/O PAIN.
[2022-10-23 12:00] VITALS: BP 149/84
[2022-10-23 16:00] VITALS: BP 154/87
--- NOTE | 2022-10-23 16:58 | NUR ---
10/23/22 RD FOLLOW UP COMPLETED PLEASE REFER TO NUTRITION ASSESSMENT UNDER CARE ACTIVITY FOR ESTIMATED NUTRITIONAL NEEDS. 1. RECOMMEND ADDING CCHO 60 GRAM TO RENAL DIET 2. RECOMMEND NEPRO BID. - NEPRO BID WILL PROVIDE 820 KCAL, 38 G PROTEIN. 3. MONITOR GI, PO INTAKE, AND LAB VALUES. 4. RD TO FOLLOW-UP 3-5 DAYS, MODERATE RISK REVIEWED BY KEON SOOD RD
--- NOTE | 2022-10-23 17:33 | NUR ---
PAGED DR. MELCHOR REGARDING PT. HD ORDER FOR TOMORROW 10/24/2022. INFORMED CHARGE NURSE JATIN GRIJALVA.
--- NOTE | 2022-10-23 19:10 | NUR ---
REPORT GIVEN TO MITCH -RN FOR CONTINUITY OF CARE. IN STABLE CONDITION.
--- NOTE | 2022-10-23 19:15 | NUR ---
RECEIVED REPORT FROM DAY JESSE COE FOR CONTINUITY OF CARE. PT IS AWAKE AND ALERT. PT NOT IN ANY DISTRESS. PT IS ON RA SATING 91%. PT HAS LEFT WRIST 22 GAUGE SALINE LOCK. POC DISCUSSED. CALL LIGHT WITHIN REACH. WILL CONTINUE TO MONITOR THE PT.
--- NOTE | 2022-10-23 22:00 | NUR ---
ASSISTED PT TO THE RESTROOM. PT HAD TROUBLE GETTING BACK UP FROM THE SIT. PT HAD BM. ASSISTED BACK TO BED. NO COMPLAINS. WILL CONTINUE TO MONITOR THE PT.
--- NOTE | 2022-10-24 00:45 | NUR ---
OBSERVED PT. PT IS SLEEPING COMFORTABLE IN BED. PT NOT IN ANY DISTRESS. BREATHING EVEN AND UNLABORED. WILL CONTINUE TO MONITOR THE PT.
--- NOTE | 2022-10-24 03:05 | NUR ---
PT PULLED OUT IV. CATHETER INTACT. TRIED 2 TIMES INSERTING NEW IV WITH NO SUCCESS. PT REFUSED TO BE FURTHER POKED. WANTS TO WAIT TILL DAY TIME AND DOES NOT WANT TO BE BOTHER.
[2022-10-24 04:00] VITALS: BP 175/109
[2022-10-24] MEDS: CLONIDINE HYDROCHLORIDE 0.1 MG TAB PO PRN (04:44)
[2022-10-24] MEDS: ACETAMINOPHEN 325 MG TAB PO PRN (04:44)
--- NOTE | 2022-10-24 04:44 | NUR ---
PT BLOOD IS HIGH 175/109 WITH HR 123. TEMP 99.9. PRN CATAPRES GIVEN AND TYLENOL. PT DENIES ANY PAIN AND STATES HE IS COLD. WARM BLANKETS PROVIDED. WILL REASSESS PT.
--- NOTE | 2022-10-24 06:18 | NUR ---
REASSESSED PT BP AND ITS 178/96. HR 107. PT IS HAVING TEMP OF 100.2. COOLING MEASURES TAKEN.
[2022-10-24 07:14] LABS: BASOPHILS % (AUTO) 0.4 % (0.0-2.0); EOSINOPHILS # (AUTO) 0.1 K/uL (0-0.4); EOSINOPHILS % (AUTO) 1.1 % (0.0-4.0); HEMATOCRIT 25.3 % (36-52); HEMOGLOBIN 8.4 g/dL (12.0-18.0); LYMPHOCYTES # (AUTO) 0.7 K/uL (2.0-11.5); LYMPHOCYTES % (AUTO) 6.1 % (20.5-51.1); MEAN CORPUSCULAR HEMOGLOBIN 30 pg (27-31); MEAN CORPUSCULAR HGB CONC 33 g/dL (33-37); MEAN CORPUSCULAR VOLUME 88.9 fL (80-94); MONOCYTES % (AUTO) 8.4 % (1.7-9.3); NEUTROPHILS # (AUTO) 10.1 K/uL (1.8-7.7); PLATELET COUNT (AUTO) 221 K/uL (140-450); RED BLOOD CELL COUNT(AUTO) 2.84 MIL/uL (4.20-6.10); RED CELL DISTRIBUTION WIDTH 13.2 % (11.6-13.7); WHITE BLOOD COUNT (AUTO) 12.1 K/uL (4.8-10.8)
--- NOTE | 2022-10-24 07:20 | NUR ---
ENDORSED PT TO DAY SHIFT SHELLY FOR CONTINUITY OF CARE. PT IS STABLE.
--- NOTE | 2022-10-24 07:30 | NUR ---
RECEIVED PT FROM COGNOS ARCHITECT NURSE. PT IN BED AWAKE. SHIVERING WITH BLANKETS ON. PT LAYING DOWN ON RIGHT SIDE VOMITING AND SPITTING ON FLOOR. NO IV ACCESS. TEMPERATURE 100.8, O2 SATURATING AT 88% REMOVED BLANKETS PT STATES "I AM COLD". COOLING MEASURES IN PLACE. PT PLACED ON 2L O2 VIA N/C.
[2022-10-24 07:34] LABS: ANION GAP 13.9 (8-16); CARBON DIOXIDE 26.9 mmol/L (21-32); POTASSIUM 3.8 mmol/L (3.5-5.1); TOTAL BILIRUBIN 0.2 mg/dL (0.0-1.0)
[2022-10-24 08:00] VITALS: BP 172/92
--- NOTE | 2022-10-24 08:15 | NUR ---
RECEIVED CALL FROM LAB WITH CRITICAL CREATININE 5.3. INFORMED DR SINGH ABOUT CRITICAL VALUE AND HOW PT HAS NO DIALYSIS ORDER FOR TODAY. AWAITING RESPONSE.
[2022-10-24 08:24] LABS: CREATININE 5.3 mg/dL (0.6-1.3)
[2022-10-24] MEDS ORDERED: VANCOMYCIN PER PHARMACY MC PRN (08:30)
[2022-10-24] MEDS ORDERED: EPOETIN ALFA-EPBX 10,000 UNITS/ML VIAL IV SCH (09:00)
[2022-10-24] MEDS ORDERED: CEFEPIME 1,000 MG in DEXTROSE 5% 50 ML IV SCH (09:00)
--- NOTE | 2022-10-24 09:31 | NUR ---
NURSE WENT IN TO GIVE PT MORNING MEDS. PT LAYING DOWN FLAT IN BED VOMITING. PT TURNED ON SIDE. COOLING MEASURES IN PLACE.
[2022-10-24] MEDS ORDERED: VANCOMYCIN HCL 1.25 GM in DEXTROSE 5% 250 ML IV SCH (10:00)
[2022-10-24] MEDS: hydrALAZINE 25 MG TAB PO SCH ×2 (10:09→20:33)
[2022-10-24] MEDS: NIFEdipine 90 MG TABER PO SCH (10:15)
[2022-10-24] MEDS: LOSARTAN 50 MG TAB PO SCH (10:15)
--- NOTE | 2022-10-24 10:24 | NUR ---
ADMINISTERED ALL SCHEDULED MEDS. PT IN BED NO LONGER QUIVERING. TEMPERATURE TAKEN 98.4. IV ATTEMPTED ON PT UNSUCESSFUL. PT REPOSITIONED ON BED BY NURSE AND PT. PT STATES "JUST LEAVE ME ALONE, I DONT WANT TO BE BOTHERED ANYMORE."
[2022-10-24 10:53] LABS: APPEARANCE,URINE CLEAR (CLEAR); BILIRUBIN,URINE NEGATIVE (NEGATIVE); BLOOD, URINE SMALL (NEGATIVE); COLOR,URINE YELLOW (YELLOW); LEUKOCYTE ESTERASE ,URINE NEGATIVE (NEGATIVE); NITRITE, URINE NEGATIVE (NEGATIVE); UGLUCOSE 3+ (NEGATIVE)
--- NOTE | 2022-10-24 11:14 | NUR ---
SANDRA COE ATTEMPTED IV PLACEMENT X2. IV ATTEMPTS UNSUCCESSFUL.
[2022-10-24 11:15] LABS: RBC,URINE 0-5 /HPF (0-5); WBC,URINE 0-5 /HPF (0-5)
--- NOTE | 2022-10-24 12:20 | NUR ---
IV INSERTION SUCCESSFUL BY ANN. 22G ON R HAND.
--- NOTE | 2022-10-24 13:10 | NUR ---
SETTING UP IV PUMP. DIALYSIS NURSE WALKS INTO ROOM STATES PT WILL BE HAVING DIALYSIS. PER DIALYSIS NURSE IV ABX CANNOT BE GIVEN RIGHT NOW.
--- NOTE | 2022-10-24 15:24 | NUR ---
MAKING ROUNDS. PT RECEIVING DIALYSIS. DIALYSIS NURSE AT BEDSIDE.
--- NOTE | 2022-10-24 17:18 | NUR ---
PT MAKING A PHONE CALL.
--- NOTE | 2022-10-24 17:31 | NUR ---
ATTEMPTED TO FLUSH IV, NO IV CATH INSERTED. PT STATES HE DOESNT KNOW HOW IT CAME OUT. NO IV. PT STATES " KAYA BEEN POKED SINCE 3 AM I DONT WANT TO BE POKED ANYMORE."
--- NOTE | 2022-10-24 18:41 | NUR ---
INFORMED DR NIEVES OF PT HAVING NO IV ACCESS. PER DR FRANCISCO PRIETO TO GET MIDLINE. LEFT MESSAGE FOR DR MELCHOR FOR CLEARANCE. WAITING FOR RESPONSE.
--- NOTE | 2022-10-24 19:25 | NUR ---
ENDORSED PT TO INDUSTRIAL ROOFER NURSE FOR CONTINUITY OF CARE. PT IN STABLE CONDITION.
--- NOTE | 2022-10-24 19:30 | NUR ---
RECEIVED REPORT FROM DAY SHIFT NURSE FOR CONTINUITY OF CARE. PT IS NOT IN ANY DISTRESS ON RA. FAMILY BY BEDSIDE. PT STILL HAS NO IV ACCESS AND WAITING FOR MIDLINE PLACEMENT. IV ABX NOT GIVEN AM DUE TO IV COMING OUT AFTER HD. PT USES URINAL BY BEDSIDE AND HAS DIAPER ON. PT STATES HE IS COLD. TEMPERATURE TAKEN. 99.0. POC DISCUSSED. WILL CONTINUE TO MONITOR THE PT.
[2022-10-24 20:00] VITALS: BP 132/78
--- NOTE | 2022-10-24 20:33 | NUR ---
SCHEDULE MEDICATION GIVEN. NO ADVERSE REACTION NOTED. WILL CONTINUE TO MONITOR THE PT.
--- NOTE | 2022-10-25 02:13 | NUR ---
OBSERVED PT. PT IS SLEEPING COMFORTABLY IN BED. PT NOT IN ANY DISTRESS. BREATHING EVEN AND UNLABORED. CALL LIGHT WITHIN REACH. SAFETY MEASURES TAKEN. WILL CONTINUE TO MONITOR THE PT.
[2022-10-25 04:00] VITALS: BP 150/87
[2022-10-25 06:56] LABS: BASOPHILS # (AUTO) 0.1 K/uL (0.00-0.22); BASOPHILS % (AUTO) 0.9 % (0.0-2.0); EOSINOPHILS # (AUTO) 0.1 K/uL (0-0.4); EOSINOPHILS % (AUTO) 0.9 % (0.0-4.0); HEMATOCRIT 25.6 % (36-52); HEMOGLOBIN 8.6 g/dL (12.0-18.0); LYMPHOCYTES # (AUTO) 1.1 K/uL (2.0-11.5); LYMPHOCYTES % (AUTO) 12.4 % (20.5-51.1); MEAN CORPUSCULAR HEMOGLOBIN 30 pg (27-31); MEAN CORPUSCULAR HGB CONC 33 g/dL (33-37); MEAN CORPUSCULAR VOLUME 89.2 fL (80-94); MONOCYTES % (AUTO) 11.5 % (1.7-9.3); NEUTROPHILS # (AUTO) 6.4 K/uL (1.8-7.7); NEUTROPHILS % (AUTO) 74.3 % (42.2-75.2); PLATELET COUNT (AUTO) 200 K/uL (140-450); RED BLOOD CELL COUNT(AUTO) 2.87 MIL/uL (4.20-6.10); RED CELL DISTRIBUTION WIDTH 13.2 % (11.6-13.7); WHITE BLOOD COUNT (AUTO) 8.7 K/uL (4.8-10.8)
--- NOTE | 2022-10-25 07:10 | NUR ---
RECEIVED REPORT FROM NIGHT NURSE MITCH FOR CONTINUITY OF CARE. PT IS FOR MIDLINE INSERTION. CALL LIGHT KEPT WITHIN REACH. WILL CONTINUE TO MONITOR.
[2022-10-25 07:15] LABS: ANION GAP 10.2 (8-16); CARBON DIOXIDE 27.5 mmol/L (21-32); POTASSIUM 3.7 mmol/L (3.5-5.1); TOTAL BILIRUBIN 0.2 mg/dL (0.0-1.0)
--- NOTE | 2022-10-25 07:15 | NUR ---
ENDORSED PT TO DAY SHIFT NURSE FOR CONTINUITY OF CARE. PT IS STABLE.
[2022-10-25 07:38] LABS: CREATININE 4.1 mg/dL (0.6-1.3)
--- NOTE | 2022-10-25 07:40 | NUR ---
RECEIVED CRITICAL LAB CREATININE 4.1. REPORTED TO DR. NIEVES. NO NEW ORDER. HD SCHEDULED MWF.
[2022-10-25 08:00] VITALS: BP 153/89
[2022-10-25] MEDS: LOSARTAN 50 MG TAB PO SCH (08:51)
[2022-10-25] MEDS: hydrALAZINE 25 MG TAB PO SCH (08:52)
[2022-10-25] MEDS: NIFEdipine 90 MG TABER PO SCH (08:52)
--- NOTE | 2022-10-25 08:52 | NUR ---
SCHEDULED MEDICATIONS WAS GIVEN. TOLERATING WELL.
[2022-10-25] MEDS ORDERED: CEFEPIME 500 MG in DEXTROSE 5% 50 ML IV SCH (09:00)
--- NOTE | 2022-10-25 11:17 | NUR ---
SPOKE TO PICC LINE NURSE GLENN FOR CANCELLATION OF SERVICE. INSERTED IV TO RT HAND. WITH BLOOD FLOW RETURN.S
--- NOTE | 2022-10-25 15:15 | NUR ---
CALLED [facility] NO ANSWER.
--- NOTE | 2022-10-25 15:55 | NUR ---
PT LEFT FACILITY DISCHARGE TO [facility]. TRANSPORTED BY [facility], ACCOMPANIED BY 1 MALE AND 1 FEMALE DEMOLITION HAMMER OPERATOR PER GURNEY. IV AND ID BAND REMOVED. PAPERWORK AND BELONGINGS GIVEN TO PT. REMAINS STABLE. CALL LIGHT KEPT WITHIN REACH. WILL CONTINUE TO MONITOR.
--- NOTE | 2022-10-25 16:40 | NUR ---
ZANDER SAMSON REPORT GIVEN TO RUTHY. Addendum: 10/25/22 at 1947 by ANNA SINCLAIR LVN ENTERED WRONG DOCUMENTATION
== END 2022-10-25 15:55 | DRG 720 ==
LOC: MED 14:14 → MTU 17:31
PROVIDERS: ADMIT Internal Medicine; ATTEND Internal Medicine
PROC: 05HM33Z Insertion of Infusion Device into Right Internal Jugular Vein, Percutaneous Approach (ICD-10-PCS; 2022-10-16)
PROC: B543ZZA Ultrasonography of Right Jugular Veins, Guidance (ICD-10-PCS; 2022-10-16)
PROC: 5A1D70Z Performance of Urinary Filtration, Intermittent, Less than 6 Hours Per Day (ICD-10-PCS; 2022-10-16)
PROC: 5A1D70Z Performance of Urinary Filtration, Intermittent, Less than 6 Hours Per Day (ICD-10-PCS; 2022-10-18)
PROC: 02HV33Z Insertion of Infusion Device into Superior Vena Cava, Percutaneous Approach (ICD-10-PCS; 2022-10-19)
PROC: 05PY33Z Removal of Infusion Device from Upper Vein, Percutaneous Approach (ICD-10-PCS; 2022-10-19)
PROC: B5181ZA Fluoroscopy of Superior Vena Cava using Low Osmolar Contrast, Guidance (ICD-10-PCS; 2022-10-19)
PROC: 30233N1 Transfusion of Nonautologous Red Blood Cells into Peripheral Vein, Percutaneous Approach (ICD-10-PCS; 2022-10-19)
PROC: 0JH60XZ Insertion of Tunneled Vascular Access Device into Chest Subcutaneous Tissue and Fascia, Open Approach (ICD-10-PCS; principal; 2022-10-19 18:00)
PROC: 5A1D70Z Performance of Urinary Filtration, Intermittent, Less than 6 Hours Per Day (ICD-10-PCS; 2022-10-20)
PROC: 5A1D70Z Performance of Urinary Filtration, Intermittent, Less than 6 Hours Per Day (ICD-10-PCS; 2022-10-21)
PROC: 5A1D70Z Performance of Urinary Filtration, Intermittent, Less than 6 Hours Per Day (ICD-10-PCS; 2022-10-22)
PROC: 02HV33Z Insertion of Infusion Device into Superior Vena Cava, Percutaneous Approach (ICD-10-PCS; 2022-10-24)
PROC: B548ZZA Ultrasonography of Superior Vena Cava, Guidance (ICD-10-PCS; 2022-10-24)
DX: A41.9 Sepsis, unspecified organism (principal); N17.0 Acute kidney failure with tubular necrosis; J96.01 Acute respiratory failure with hypoxia; J69.0 Pneumonitis due to inhalation of food and vomit; E43 Unspecified severe protein-calorie malnutrition; E83.51 Hypocalcemia; D63.8 Anemia in other chronic diseases classified elsewhere; E87.20 Acidosis, unspecified; I21.A1 Myocardial infarction type 2; E11.22 Type 2 diabetes mellitus with diabetic chronic kidney disease; E87.1 Hypo-osmolality and hyponatremia; E87.5 Hyperkalemia; N18.5 Chronic kidney disease, stage 5; Z68.28 Body mass index [BMI] 28.0-28.9, adult; I13.2 Hypertensive heart and chronic kidney disease with heart failure and with stage 5 chronic kidney disease, or end stage renal disease; E78.5 Hyperlipidemia, unspecified; Z20.822 Contact with and (suspected) exposure to COVID-19; I50.9 Heart failure, unspecified; Z79.82 Long term (current) use of aspirin; I69.354 Hemiplegia and hemiparesis following cerebral infarction affecting left non-dominant side
CPT/HCPCS: 36415; 71045; 80048; 80053; 81001; 83605; 83735; 83880; 84484; 85025; 85610; 85730; 86704; 86706; 86708; 86709; 86803; 86886; 86900; 86901; 86920; 87040; 87081; 87086; 87340; 93005; 94640; 96361; 96365; 97110; 97112; 97116; 97163-GP; 97530; 99285; C1750; J0692; J0696; J1644; J2001; J2270; J2543; J2704; J3370; J3490; J7030; J7060; J7613; P9016; Q0092; Q5106

== ENCOUNTER 2023-01-02 10:24 | Inpatient (IN) | payer OTHER ==
[~2023-01-02] VITALS: Ht 182.9 cm; Wt 81.6 kg
[~2023-01-02 10:24] MED LIST: ACET-2619 PO; ASPI-1749 PO; CARV25TA PO; ESCI10TA PO; FERR325E14 PO; LOSA50TA1 PO; NIFE60TA39 PO; TAMS0.4C96 PO
[2023-01-02 10:33] VITALS: BP 14/84
[2023-01-02] MEDS ORDERED: ACETAMINOPHEN EXTRA STRENGTH 500 MG TAB PO ONE (10:50)
[2023-01-02] MEDS ORDERED: NACL 0.9% 1,000 ML IV SCH (10:50)
[2023-01-02] MEDS ORDERED: LORazepam 2 MG/ML VIAL IVP ONE (11:05)
[2023-01-02] MEDS ORDERED: LORazepam 2 MG/ML VIAL ONE (11:06)
[2023-01-02 12:52] LABS: BASOPHILS # (AUTO) 0.1 K/uL (0.00-0.22); BASOPHILS % (AUTO) 0.4 % (0.0-2.0); EOSINOPHILS % (AUTO) 0.1 % (0.0-4.0); HEMATOCRIT 25.6 % (36-52); HEMOGLOBIN 8.1 g/dL (12.0-18.0); LYMPHOCYTES # (AUTO) 0.3 K/uL (2.0-11.5); LYMPHOCYTES % (AUTO) 2.8 % (20.5-51.1); MEAN CORPUSCULAR HEMOGLOBIN 27 pg (27-31); MEAN CORPUSCULAR HGB CONC 32 g/dL (33-37); MEAN CORPUSCULAR VOLUME 85.5 fL (80-94); MONOCYTES # (AUTO) 0.8 K/uL (0.8-1.0); MONOCYTES % (AUTO) 6.5 % (1.7-9.3); NEUTROPHILS # (AUTO) 10.9 K/uL (1.8-7.7); NEUTROPHILS % (AUTO) 90.2 % (42.2-75.2); PLATELET COUNT (AUTO) 366 K/uL (140-450)
[2023-01-02 12:59] LABS: PROTHROMBIN TIME 12.1 secs (10.8-13.4)
[2023-01-02 13:10] LABS: ALBUMIN 1.6 g/dL (3.4-5.0); ANION GAP 6.9 (8-16); CARBON DIOXIDE 34.1 mmol/L (21-32); CREATININE 2.6 mg/dL (0.6-1.3); TOTAL BILIRUBIN 0.3 mg/dL (0.0-1.0)
[2023-01-02] MEDS ORDERED: ASPIRIN 81 MG TAB.CHEW PO ONE (13:30)
[2023-01-02] MEDS ORDERED: POTASSIUM CHLORIDE 10 MEQ TABER PO ONE (13:40)
[2023-01-02] MEDS ORDERED: LORazepam 2 MG/ML VIAL IVP PRN (13:50)
[2023-01-02] MEDS ORDERED: MORPHINE SULFATE 2 MG/ML SYR IVP PRN (13:50)
[2023-01-02] MEDS ORDERED: ONDANSETRON 4 MG/2 ML VIAL IVP PRN (13:50)
[2023-01-02] MEDS ORDERED: cefTRIAXone 1,000 MG VIAL ONE (14:06)
[2023-01-02] MEDS ORDERED: HYDR-1100 PO (14:20)
[2023-01-02] MEDS ORDERED: ESCI10TA PO (14:20)
[2023-01-02] MEDS ORDERED: INSU100S45 SUBQ (14:20)
--- NOTE | 2023-01-02 15:04 | NUR ---
Patient will be admitted to care of Dr. Pedroza. Admited to Tele. Will go to room 114. Belongings list completed. Report to Satya WEST.
[2023-01-02 16:00] VITALS: BP 157/82
--- NOTE | 2023-01-02 16:13 | NUR ---
admitted the patient from emergency room ervin kramer sedated . with admitting diagnosis of sepsis . will continue to monitor
--- NOTE | 2023-01-02 16:30 | NUR ---
started on antibiotics .
[2023-01-02] MEDS: AZITHROMYCIN 500 MG in DEXTROSE 5% 250 ML IV SCH (16:56)
--- NOTE | 2023-01-02 18:34 | NUR ---
will endorse to retail shift manager rn for continuity of care . for nephrology consult for hemodialysis . to start for for antibiotic therapy also
[2023-01-02 20:00] VITALS: BP 145/80
[2023-01-03] VITALS: BP 159/96
[2023-01-03] MEDS: ACETAMINOPHEN 325 MG TAB PO PRN ×2 (05:30→19:56)
[2023-01-03 07:05] LABS: BASOPHILS % (AUTO) 0.3 % (0.0-2.0); EOSINOPHILS % (AUTO) 0.2 % (0.0-4.0); HEMATOCRIT 24.8 % (36-52); HEMOGLOBIN 7.9 g/dL (12.0-18.0); LYMPHOCYTES # (AUTO) 1.1 K/uL (2.0-11.5); LYMPHOCYTES % (AUTO) 11.4 % (20.5-51.1); MEAN CORPUSCULAR HEMOGLOBIN 27 pg (27-31); MEAN CORPUSCULAR HGB CONC 32 g/dL (33-37); MEAN CORPUSCULAR VOLUME 85.8 fL (80-94); MONOCYTES # (AUTO) 0.6 K/uL (0.8-1.0); MONOCYTES % (AUTO) 6.6 % (1.7-9.3); NEUTROPHILS % (AUTO) 81.5 % (42.2-75.2); PLATELET COUNT (AUTO) 376 K/uL (140-450); RED CELL DISTRIBUTION WIDTH 15.9 % (11.6-13.7); WHITE BLOOD COUNT (AUTO) 9.8 K/uL (4.8-10.8)
[2023-01-03 07:25] LABS: ALBUMIN 1.5 g/dL (3.4-5.0); ANION GAP 9.2 (8-16); CARBON DIOXIDE 31.5 mmol/L (21-32); CREATININE 3.4 mg/dL (0.6-1.3); TOTAL BILIRUBIN 0.3 mg/dL (0.0-1.0)
[2023-01-03 07:44] LABS: POTASSIUM 2.7 mmol/L (3.5-5.1)
[2023-01-03 08:00] VITALS: BP 171/90
[2023-01-03] MEDS ORDERED: KCL 20 MEQ IN 100 mL PREMIX 200 ML IV SCH ×2 (09:00→14:00)
--- NOTE | 2023-01-03 09:34 | NUR ---
PATIENT HAS BEEN SCREENED AND CATEGORIZED MODERATE NUTRITION RISK. PATIENT WILL BE SEEN WITHIN 3-5 DAYS OF ADMISSION. REVIEWED BY KEON SOOD RD
[2023-01-03] MEDS ORDERED: KCL 20 MEQ IN 100 mL PREMIX 200 ML IV ONE (09:40)
[2023-01-03] MEDS ORDERED: POTASSIUM CHLORIDE 40 MEQ, LIDOCAINE 1% 25 MG in NACL 0.9% 250 ML IV SCH (10:00)
[2023-01-03 12:00] VITALS: BP 170/94
[2023-01-03] MEDS ORDERED: KCL 20 MEQ IN 100 mL PREMIX 100 ML IV ONE ×2 (12:17→19:24)
[2023-01-03] MEDS ORDERED: hydrALAZINE 20 MG/ML VIAL IVP PRN (13:05)
[2023-01-03 16:00] VITALS: BP 168/96
[2023-01-03] MEDS: AZITHROMYCIN 500 MG in DEXTROSE 5% 250 ML IV SCH (16:00)
--- NOTE | 2023-01-03 19:32 | NUR ---
PT GOT CHILI AND HAD FIVER GAVE TYLENOL FOR FEVER 103.4 ORDERED, GAVE ATIVAN FOR AGITATION, GAVE MORPHINE FOR PAIN IN STOMACH AND ALL OVER THE BODY, AUTO GARAGE MECHANIC ANA MARIA NOTIFIED.ICE PACK APPLIED. COMFORT MEASURES WELL, PT SAID HE FELT THIS WAY WHEN HE ARRIVED IN ER. ENDORSED TO THE NIGHT NURSE.[email or web address]
--- NOTE | 2023-01-03 19:35 | NUR ---
RECEIVED PT IN BED WITH TEMP OF 103., TYLENOL GIVEN BY AM NURSE, SPONGE BATH PROVIDED, PT ALSO INCONTINENT OF URINE AND STOOL. DENIES PAIN. NO ACUTE RESPIRATORY DISTRESS. SKIN WARM AND DRY TO TOUCH. SAFETY PRECAUTIONS IN PLACE, CALL LIGHT IN REACH.
[2023-01-03 20:00] VITALS: BP 138/87
--- NOTE | 2023-01-03 20:24 | NUR ---
PT REFUSED TO HEMODIALYSIS CONSENT AT THIS TIME. Addendum: 01/04/23 at 0211 by Michaelle Collier RN REFUSED TO SIGN.
[2023-01-04] VITALS: BP 134/69
[2023-01-04] MEDS: ACETAMINOPHEN 325 MG TAB PO PRN ×3 (00:01→17:01)
--- NOTE | 2023-01-04 02:10 | NUR ---
ROUNDING DONE. PATIENT IS ASLEEP. BREATHING EVEN AND UNLABORED. CALL LIGHT WITHIN REACH.
[2023-01-04 04:00] VITALS: BP 159/86
--- NOTE | 2023-01-04 04:00 | NUR ---
ORAL TEMP-99.2, BODY WARM TO TOUCH, SPONGE BATH PROVIDED. MADE COMFORTABLE IN BED. CALL LIGHT IN REACH.
--- NOTE | 2023-01-04 06:35 | NUR ---
PATIENT IS ASLEEP. NO DISTRESS NOTED. ALL NEEDS ATTENDED TO. SAFETY PRECAUTIONS MAINTAINED DURING THE SHIFT, CALL LIGHT REMAINS WITHIN REACH.
--- NOTE | 2023-01-04 07:16 | NUR ---
ENDORSED CARE TO AM NURSE. PATIENT IS ASLEEP AND STABLE.
--- NOTE | 2023-01-04 07:16 | NUR ---
RECEIVED PATIENT FROM PM NURSE FOR CONTINUATION OF CARE. PATIENT SEEN ASLEEP IN BED WITH NORMAL RISE AND FALL OF CHEST.
[2023-01-04 08:00] VITALS: BP 170/97
--- NOTE | 2023-01-04 11:34 | NUR ---
DC PLANNING ASSESSMENT COMPLETE PLEASE REFER TO ASSESSMENT FOR ADDITIONAL DETAILS DC PLAN IS FOR PT TO RETURN TO [facility] [phone],WHEN MEDICALLY STABLE. ATTEMPTED TO CALL PTS , TO CONFIRM COLLAT INFO GATHERED, HOWEVER, NO ANSWER. Addendum: 01/04/23 at 1136 by Luis Manuel JOHNSON Amended: Links added.
[2023-01-04] MEDS ORDERED: AMOX1TAB8 PO (11:35)
[2023-01-04 12:00] VITALS: BP 146/78
[2023-01-04 12:08] LABS: BASOPHILS % (AUTO) 0.3 % (0.0-2.0); HEMATOCRIT 24.9 % (36-52); HEMOGLOBIN 7.9 g/dL (12.0-18.0); LYMPHOCYTES % (AUTO) 6.1 % (20.5-51.1); MEAN CORPUSCULAR HEMOGLOBIN 27 pg (27-31); MEAN CORPUSCULAR HGB CONC 32 g/dL (33-37); MEAN CORPUSCULAR VOLUME 85.7 fL (80-94); MONOCYTES # (AUTO) 1.1 K/uL (0.8-1.0); MONOCYTES % (AUTO) 6.8 % (1.7-9.3); NEUTROPHILS # (AUTO) 13.7 K/uL (1.8-7.7); NEUTROPHILS % (AUTO) 86.8 % (42.2-75.2); PLATELET COUNT (AUTO) 351 K/uL (140-450); RED CELL DISTRIBUTION WIDTH 15.9 % (11.6-13.7); WHITE BLOOD COUNT (AUTO) 15.8 K/uL (4.8-10.8)
[2023-01-04 12:14] LABS: ANION GAP 10.4 (8-16); CARBON DIOXIDE 28.1 mmol/L (21-32); POTASSIUM 3.5 mmol/L (3.5-5.1)
[2023-01-04 12:18] LABS: CREATININE 4.6 mg/dL (0.6-1.3)
--- NOTE | 2023-01-04 13:00 | NUR ---
PATIENT SIGNS CONSENT FORM FOR DIALYSIS
--- NOTE | 2023-01-04 13:00 | NUR ---
DIALYSIS ASKS FOR 2 VIALS 5000 UNITS HEPARIN. HEPARIN GIVEN
--- NOTE | 2023-01-04 13:19 | NUR ---
RECEIVED ORDER FOR PATIENT TO GO BACK TO SNF FOR PT/OT AND PO ABX. FAXED ALL PAPERWORK TO [facility] AND [facility]. SPOKE WITH CALEB AT [facility] LOCATED AT [address] [place] [id number]. PATIENT WAS ACCEPTED BACK AND WILL BE GOING TO ROOM [address] UNDER [address] [place]. GURNEY TRANSPORTATION WAS SET UP WITH [facility] FOR A 1900 CUT OFF TENDER GLASS TIME AFTER DIALYSIS. [facility] IS NOTIFIED TO CALL NURSING STATION . SNF AUTH# PENDING BUT WILL BE GETTING FROM [facility] Addendum: 01/04/23 at 1354 by KRISTIE ZULETA CM NURSE VIJAYA AWARE OF THE ABOVE INFORMATION, TRIED CALLED PATIENTS BROTHER BUT NUMBER LISTED IS THE NUMBER FOR [facility]. Addendum: 01/04/23 at 1734 by Shania Urena RN dc planning: CM CALLED [facility] SPOKE WITH THE CHARGE ACCOUNT IDENTIFICATION CLERK STATED TRANSPORT WILL BE ARRANGED WITH CALL THE [facility] [phone] CUT OFF TENDER GLASS TIME 7 PM. NOTIFIED CECILIO GONZALEZ RN
[2023-01-04 16:00] VITALS: BP 147/86
[2023-01-04] MEDS: AZITHROMYCIN 500 MG in DEXTROSE 5% 250 ML IV SCH (16:00)
--- NOTE | 2023-01-04 17:01 | NUR ---
patient picked up by transport to [facility] and endorsed to facility nurse for continuation of care.
[2023-01-04 17:42] VITALS: BP 160/67
[2023-01-07] MEDS ORDERED: EPOETIN ALFA-EPBX 10,000 UNITS/ML VIAL IV SCH (09:00)
== END 2023-01-04 19:18 | DRG 720 ==
LOC: MED 10:24 → MTU 13:48
PROVIDERS: ADMIT Hospitalist; ATTEND Hospitalist
PROC: 5A1D70Z Performance of Urinary Filtration, Intermittent, Less than 6 Hours Per Day (ICD-10-PCS; principal; 2023-01-04)
DX: A41.9 Sepsis, unspecified organism (principal); I12.0 Hypertensive chronic kidney disease with stage 5 chronic kidney disease or end stage renal disease; J18.9 Pneumonia, unspecified organism; N18.6 End stage renal disease; E44.0 Moderate protein-calorie malnutrition; E11.22 Type 2 diabetes mellitus with diabetic chronic kidney disease; E78.5 Hyperlipidemia, unspecified; Z20.822 Contact with and (suspected) exposure to COVID-19; Z99.2 Dependence on renal dialysis; Z79.82 Long term (current) use of aspirin; Z79.1 Long term (current) use of non-steroidal anti-inflammatories (NSAID); Z68.24 Body mass index [BMI] 24.0-24.9, adult
CPT/HCPCS: 36415; 36600; 71045; 80048; 80053; 82550; 82553; 82803; 82948; 83605; 83735; 83874; 83880; 84484; 85025; 85610; 85730; 87040; 87081; 93005; 96374; 96375; 99285; J0360; J0456; J0696; J1644; J2001; J2060; J2270; J3480; J7030; J7060; Q0092